=== PATIENT | male | born 1970 | race Two or more races ===

== ENCOUNTER → 2019-09-12 | Emergency (ER) | payer OTHER, MEDICAID ==
[~2019-09-12] VITALS: Ht 177.8 cm; Wt 72.6 kg
[~2019-09-12] MED LIST: DEXTROSE (50%) 50ML SYRG IV ONE; DEXTROSE 50% SYRINGE 50 ML IV ONE; SODIUM CHLORIDE 0.9% 1,000 ML IV ONE; SODIUM CHLORIDE 0.9% 1,000 ML IVB ONE
[2019-09-12 14:22] LABS: Basophils # (auto) 0 10 ^3/uL (0-0.2); Eosinophils # (auto) 0.1 10 ^3/uL (0-0.8); Eosinophils % (auto) 1.2 % (0.0-7.0); Hemoglobin 11.6 g/dL (13.5-17.5); Lymphocytes # (auto) 1.1 10 ^3/uL (0.4-5.4); Monocytes # (auto) 0.6 10 ^3/uL (0-1.3); Neutrophils % (auto) 76.1 % (37.0-80.0); Red Cell Distribution Width 14.3 % (11.8-14.3)
[2019-09-12 14:23] LABS: Basophils % (auto) 0.5 % (0.0-2.0); Hematocrit 34.6 % (41.0-53.0); Lymphocytes % (auto) 14.2 % (10.0-50.0); Mean Corpuscular Hemoglobin 33.7 pg (28.0-32.0); Mean Corpuscular Hgb Conc. 33.4 g/dL (32.0-36.0); Mean Corpuscular Volume 100.8 fL (80.0-100.0); Neutrophils # (auto) 6.1 10 ^3/uL (1.6-8.6); Nucleated Red Blood Cells % 0.1 %; Platelet Count (auto) 164 10^3/uL (140-450); Red Blood Cells 3.44 10^6/uL (4.5-5.90)
[2019-09-12 14:35] LABS: Albumin 3.1 g/dL (3.4-5.0); Anion Gap 9 (5-15); Blood Urea Nitrogen 57 mg/dL (7-18); Calcium 8.1 mg/dL (8.5-10.1); Carbon Dioxide 29 mmol/L (21-32); Chloride 100 mmol/L (98-107); Glucose 225 mg/dL (74-106); Magnesium 2.7 mg/dL (1.6-2.6); Potassium 4.8 mmol/L (3.5-5.1); Sodium 138 mmol/L (136-145)
[2019-09-12 14:41] LABS: Alanine Aminotransferase 29 U/L (16-61); Alkaline Phosphatase 138 U/L (45-117); Aspartate Aminotransferase 14 U/L (15-37); BUN/Creatinine Ratio 7.3; Bilirubin, Total 0.4 mg/dL (0.2-1.0); GFR African American 9 mL/min; GFR Non-African American 8 mL/min; Total Protein 7.1 g/dL (6.4-8.2)
[2019-09-12 17:00] VITALS: BP 109/58
== END | disposition home or self-care (01) ==
LOC: ER 12:24 → EDUNIT# 12:24 → EDBD 12:24
DX: I95.2 Hypotension due to drugs (principal); T46.5X5A Adverse effect of other antihypertensive drugs, initial encounter; E11.22 Type 2 diabetes mellitus with diabetic chronic kidney disease; I12.0 Hypertensive chronic kidney disease with stage 5 chronic kidney disease or end stage renal disease; N18.6 End stage renal disease; D75.89 Other specified diseases of blood and blood-forming organs; E44.1 Mild protein-calorie malnutrition; Z68.23 Body mass index [BMI] 23.0-23.9, adult; Z99.2 Dependence on renal dialysis; Z86.73 Personal history of transient ischemic attack (TIA), and cerebral infarction without residual deficits; Y92.89 Other specified places as the place of occurrence of the external cause
CPT/HCPCS: 36415; 80053; 82962; 83735; 84484; 85025; 93005; 96361; 96374; 99285; J7030; J7042; 96365; 96366